=== PATIENT | female | born 2005 | race Two or more races ===

== ENCOUNTER 2024-05-13 16:23 | Emergency (ER) | payer OTHER ==
[2024-05-13 16:31] VITALS: BP 113/73; PULSE 85; RESP 18; TEMP 98.3; BMI 21.6
[2024-05-13] MEDS ORDERED: DIPHTH,PERTUSS(ACELL),TET 0.5 ML DISP.SYRIN IM ONE (17:02)
[2024-05-13] MEDS: DIPHTH,PERTUSS(ACELL),TET 0.5 ML DISP.SYRIN IM ONE (17:12)
[2024-05-13 18:59] LABS: HIV INTERPRETATION NEGATIVE (NEGATIVE)
== END 2024-05-13 17:57 | disposition home or self-care (01) ==
LOC: JERFT 16:23
PROC: 3E0234Z Introduction of Serum, Toxoid and Vaccine into Muscle, Percutaneous Approach (ICD-10-PCS; principal; 2024-05-13)
DX: S90.511A Abrasion, right ankle, initial encounter (principal); S90.512A Abrasion, left ankle, initial encounter; V03.10XA Pedestrian on foot injured in collision with car, pick-up truck or van in traffic accident, initial encounter; Z23 Encounter for immunization
CPT/HCPCS: 36415; 73630-TC-LT; 73630-TC-RT-FY; 86803; 87389; 90471; 90715; 99284-25